=== PATIENT | female | born 1955 ===

== ENCOUNTER 2021-01-15 06:40 | Day surgery (SDC) | payer OTHER ==
[~2021-01-15 06:40] MED LIST: ALDACTONE25 MG PO; ELAVIL PO; GABAPE PO; GABAPEN PO; LAMIC PO; VASOTEC10 MG PO
== END 2021-01-15 14:55 | disposition home or self-care (01) ==
LOC: CIR.AMB 06:40
PROVIDERS: ATTEND Surgery Surgery of the Hand
DX: M65.842 Other synovitis and tenosynovitis, left hand (principal); Z20.822 Contact with and (suspected) exposure to COVID-19

== ENCOUNTER 2021-07-09 06:00 | Day surgery (SDC) | payer OTHER ==
[~2021-07-09 06:00] MED LIST changes: +CLONAZEPAM0.5 MG PO; +PROZAC10 MG PO
== END 2021-07-09 13:20 | disposition home or self-care (01) ==
LOC: CIR.AMB 06:00
PROVIDERS: ATTEND Surgery Surgery of the Hand
DX: M65.841 Other synovitis and tenosynovitis, right hand (principal); M24.641 Ankylosis, right hand; Z20.822 Contact with and (suspected) exposure to COVID-19